=== PATIENT | female | born 1995 ===

== ENCOUNTER 2018-04-06 11:05 | Emergency (ER) | payer OTHER ==
[2018-04-06 11:15] VITALS: RESP 18
[2018-04-06 11:16] VITALS: BMI 25.3
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
[2018-04-06 15:35] VITALS: BP 104/64; PULSE 83; TEMP 97.7; O2SAT 97
== END 2018-04-06 15:30 | disposition home or self-care (01) ==
LOC: H.ER 11:05
DX: O26.892 Other specified pregnancy related conditions, second trimester (principal); Z3A.15 15 weeks gestation of pregnancy